=== PATIENT | female | born 1975 | race Caucasian/White ===

== ENCOUNTER 2016-10-17 15:37 | Emergency (ER) | payer OTHER ==
[~2016-10-17] VITALS: Ht 152.4 cm; Wt 72.6 kg
[~2016-10-17 15:37] MED LIST: ALBUD HHN; BACO TOP; CLINDAMYCI900 MG/50 IV; CLINDAMYCIN HC300 MG PO; DDAVP; DDAVP0.1 MG PO; DDAVP0.2 MG PO; DESMOPRESSIN A0.1 MG PO; DIL100 PO; DIL100L PO; DILANTIN100 MG PO; DOC-Q-LACE PO; HIBICLENS118 ML TOP; KEP500 PO; KEPPRA500 MG PO; LAC PO; LACTULOSE10 GM/152 PO; LEVAQUIN750 MG PO; LEVAQUIN750 MG/150 IV; LEVOTHYROXIN0.075 M2 PO; LOVASTATIN20 MG PO; MAC100 PO; MEV20 PO; SENNA PO; SYN25 PO; THE50; VAN1I IV; ZOS3PM IV; [UNRECOGNIZED DRUG - CODE] IV
[2016-10-17 17:08] LABS: BASOPHIL % 0.9 % (0-2); PLATELET COUNT 243 x10^3mcL (130-400)
[2016-10-17 17:14] LABS: CALCIUM 9.3 mg/dL (8.5-10.1); CARBON DIOXIDE 31.6 mmol/L (21-32); CHLORIDE SERUM 108 mmol/L (98-107); CREATININE SERUM 0.6 mg/dL (0.6-1.0); GFR1 > 60 mL/min; GLUCOSE SERUM 98 mg/dL (74-106); POTASSIUM SERUM 3.7 mmol/L (3.5-5.1); SODIUM SERUM 146 mmol/L (136-145)
[2016-10-17 17:15] LABS: RED CELL DISTRIBUTION WIDTH 17.8 % (11.5-14.5)
[2016-10-17 17:18] LABS: ALBUMIN 3.8 g/dL (3.4-5.0); ALKALINE PHOSPHATASE 168 U/L (46-116); ALT/SGPT 33 U/L (14-59); AST/SGOT 20 U/L (15-37); BILIRUBIN TOTAL 0.22 mg/dL (0.20-1.00); LIPASE 198 IU/L (73-393); TOTAL PROTEIN, SERUM 8.1 g/dL (6.4-8.2)
[2016-10-17 23:07] VITALS: BP 106/69
== END 2016-10-17 23:07 | disposition home or self-care (01) ==
LOC: ED 15:37
PROVIDERS: Emergency Medicine
DX: G40.909 Epilepsy, unspecified, not intractable, without status epilepticus (principal); E11.9 Type 2 diabetes mellitus without complications; I10 Essential (primary) hypertension; Z88.0 Allergy status to penicillin; Z86.14 Personal history of Methicillin resistant Staphylococcus aureus infection

== ENCOUNTER 2016-11-19 15:22 | Inpatient (IN) | payer OTHER ==
[~2016-11-19] VITALS: Ht 149.9 cm; Wt 75.3 kg
[2016-11-19 17:04] LABS: CALCIUM 8.8 mg/dL (8.5-10.1); CARBON DIOXIDE 32.9 mmol/L (21-32); CHLORIDE SERUM 92 mmol/L (98-107); CREATININE SERUM 0.5 mg/dL (0.6-1.0); GFR1 > 60 mL/min; GLUCOSE SERUM 99 mg/dL (74-106); POTASSIUM SERUM 3.5 mmol/L (3.5-5.1); SODIUM SERUM 133 mmol/L (136-145)
[2016-11-19 17:09] LABS: BASOPHIL % 0.4 % (0-2); PLATELET COUNT 220 x10^3mcL (130-400)
[2016-11-19 17:10] LABS: RED CELL DISTRIBUTION WIDTH 17.7 % (11.5-14.5)
[2016-11-19 17:12] LABS: ALBUMIN 3.4 g/dL (3.4-5.0); ALKALINE PHOSPHATASE 173 U/L (46-116); ALT/SGPT 20 U/L (14-59); AST/SGOT 12 U/L (15-37); BILIRUBIN TOTAL 0.2 mg/dL (0.20-1.00); TOTAL PROTEIN, SERUM 7.4 g/dL (6.4-8.2)
[2016-11-19 17:28] LABS: CK-MB < 0.5 ng/mL (0-3.6); CREATINE KINASE 54 U/L (26-192)
[2016-11-19 20:56] VITALS: BP 119/76
[2016-11-19 21:00] VITALS: BP 119/76
[2016-11-19 22:02] LABS: CHOLESTEROL/HDL RATIO 1.8
[2016-11-19 22:10] LABS: T3 TOTAL 0.95 ng/mL
[2016-11-19 22:11] LABS: FREE T4 0.78 ng/dL (0.76-1.46); FREE THYROXINE INDEX 2.2 ug/dL (1.4-4.5); T4(THYROXINE) 7.2 ug/dL (4.7-13.3)
[2016-11-19 23:05] VITALS: BP 119/76
[2016-11-20 06:59] VITALS: BP 124/79
[2016-11-20 09:51] VITALS: BP 127/76
[2016-11-20 11:08] LABS: BASOPHIL % 0.1 % (0-2); PLATELET COUNT 261 x10^3mcL (130-400)
[2016-11-20 11:14] LABS: RED CELL DISTRIBUTION WIDTH 17.5 % (11.5-14.5)
[2016-11-20 11:18] LABS: CALCIUM 9.7 mg/dL (8.5-10.1); CARBON DIOXIDE 28.5 mmol/L (21-32); CHLORIDE SERUM 119 mmol/L (98-107); CREATININE SERUM 0.4 mg/dL (0.6-1.0); GFR1 > 60 mL/min; GLUCOSE SERUM 116 mg/dL (74-106); MAGNESIUM 2.3 mg/dL (1.8-2.4); SODIUM SERUM 156 mmol/L (136-145)
[2016-11-20 11:40] VITALS: Ht 149.9 cm; Wt 75.3 kg
[2016-11-20 13:18] VITALS: BP 126/70
[2016-11-20 16:11] VITALS: BP 120/74
[2016-11-20 22:26] VITALS: BP 110/70
[2016-11-21 06:03] LABS: BASOPHIL % 0.2 % (0-2); PLATELET COUNT 227 x10^3mcL (130-400)
[2016-11-21 06:22] VITALS: BP 120/84
[2016-11-21 06:37] LABS: CALCIUM 8.9 mg/dL (8.5-10.1); CARBON DIOXIDE 26.9 mmol/L (21-32); CHLORIDE SERUM 112 mmol/L (98-107); CREATININE SERUM 0.3 mg/dL (0.6-1.0); GFR1 > 60 mL/min; GLUCOSE SERUM 113 mg/dL (74-106); MAGNESIUM 2.1 mg/dL (1.8-2.4); PHOSPHOROUS 3.1 mg/dL (2.5-4.9); POTASSIUM SERUM 4.4 mmol/L (3.5-5.1); SODIUM SERUM 148 mmol/L (136-145)
[2016-11-21 06:49] LABS: RED CELL DISTRIBUTION WIDTH 18.6 % (11.5-14.5)
[2016-11-21 10:00] VITALS: BP 128/79
[2016-11-21 11:24] LABS: microscopic required? YES; urine erythrocyte TRACE (NEGATIVE)
[2016-11-21 13:33] LABS: AMPHETAMINE QUAL UR NONE DETECTED (NEG <=1000)
[2016-11-21 14:45] VITALS: BP 115/79
[2016-11-21 17:29] VITALS: BP 112/80
[2016-11-21 21:59] VITALS: BP 108/62
[2016-11-22 06:04] VITALS: BP 110/70
[2016-11-22 06:23] LABS: BASOPHIL % 0.6 % (0-2); PLATELET COUNT 218 x10^3mcL (130-400)
[2016-11-22 06:35] LABS: CARBON DIOXIDE 28.9 mmol/L (21-32); CHLORIDE SERUM 110 mmol/L (98-107); CREATININE SERUM 0.5 mg/dL (0.6-1.0); GFR1 > 60 mL/min; GLUCOSE SERUM 82 mg/dL (74-106); PHOSPHOROUS 2.8 mg/dL (2.5-4.9); POTASSIUM SERUM 3.7 mmol/L (3.5-5.1); SODIUM SERUM 145 mmol/L (136-145)
[2016-11-22 09:29] VITALS: BP 126/78
[2016-11-22] MEDS ORDERED: LEVAQUIN500 M1 PO (09:57)
[2016-11-22] MEDS ORDERED: MEDDP PO (09:57)
[2016-11-22] MEDS ORDERED: LAC PO (09:57)
[2016-11-22 13:29] VITALS: BP 126/78
[2016-11-22 13:50] VITALS: BP 119/78
== END 2016-11-22 15:50 | disposition home health service (06) | DRG 189 ==
LOC: ED 15:22 → DU 18:50
PROVIDERS: Emergency Medicine; ADMIT Family Medicine
DX: J96.20 Acute and chronic respiratory failure, unspecified whether with hypoxia or hypercapnia (principal); J45.901 Unspecified asthma with (acute) exacerbation; E23.2 Diabetes insipidus; E87.1 Hypo-osmolality and hyponatremia; I69.359 Hemiplegia and hemiparesis following cerebral infarction affecting unspecified side; L89.152 Pressure ulcer of sacral region, stage 2; B95.62 Methicillin resistant Staphylococcus aureus infection as the cause of diseases classified elsewhere; I10 Essential (primary) hypertension; E03.9 Hypothyroidism, unspecified; E34.3 Short stature due to endocrine disorder; E78.5 Hyperlipidemia, unspecified; G40.909 Epilepsy, unspecified, not intractable, without status epilepticus; E66.9 Obesity, unspecified; Z68.33 Body mass index [BMI] 33.0-33.9, adult; Z99.3 Dependence on wheelchair; Z79.51 Long term (current) use of inhaled steroids
CPT/HCPCS: 36600; 83880; 84439; 92610; J1644; J1956; J2060; J2920; J2930; J7030; J7512; J7613; J7620; J7626; J7644; Q0092

== ENCOUNTER 2016-12-15 19:43 | Emergency (ER) | payer OTHER ==
[~2016-12-15] VITALS: Ht 142.2 cm; Wt 68.0 kg
[~2016-12-15 19:43] MED LIST changes: +LEVAQUIN500 M1 PO; +MEDDP PO
[2016-12-15 20:31] LABS: BASOPHIL % 0.7 % (0-2); PLATELET COUNT 296 x10^3mcL (130-400)
[2016-12-15 20:32] LABS: RED CELL DISTRIBUTION WIDTH 17.2 % (11.5-14.5)
[2016-12-15 20:39] LABS: CALCIUM 8.9 mg/dL (8.5-10.1); CARBON DIOXIDE 29.8 mmol/L (21-32); CHLORIDE SERUM 104 mmol/L (98-107); CREATININE SERUM 0.6 mg/dL (0.6-1.0); GFR1 > 60 mL/min; GLUCOSE SERUM 97 mg/dL (74-106); POTASSIUM SERUM 3.8 mmol/L (3.5-5.1); SODIUM SERUM 138 mmol/L (136-145)
[2016-12-15 20:43] LABS: ALKALINE PHOSPHATASE 167 U/L (46-116); ALT/SGPT 24 U/L (14-59); AST/SGOT 15 U/L (15-37); BILIRUBIN TOTAL 0.1 mg/dL (0.20-1.00); LIPASE 170 IU/L (73-393); TOTAL PROTEIN, SERUM 7.1 g/dL (6.4-8.2)
[2016-12-15 20:47] LABS: ALBUMIN 3.3 g/dL (3.4-5.0)
[2016-12-16 00:55] VITALS: BP 118/71
== END 2016-12-16 00:55 | disposition home or self-care (01) ==
LOC: ED 19:43
PROVIDERS: Emergency Medicine
DX: R10.10 Upper abdominal pain, unspecified (principal); J45.909 Unspecified asthma, uncomplicated

== ENCOUNTER 2017-01-04 13:01 | Emergency (ER) | payer OTHER ==
[2017-01-04 21:40] VITALS: BP 128/80
== END 2017-01-04 22:18 | disposition home or self-care (01) ==
LOC: ED 13:01
DX: J18.9 Pneumonia, unspecified organism (principal); J45.901 Unspecified asthma with (acute) exacerbation; R06.89 Other abnormalities of breathing; E34.3 Short stature due to endocrine disorder; E03.9 Hypothyroidism, unspecified; E78.00 Pure hypercholesterolemia, unspecified; G40.909 Epilepsy, unspecified, not intractable, without status epilepticus; E66.01 Morbid (severe) obesity due to excess calories
CPT/HCPCS: 36600; Q0092

== ENCOUNTER 2017-02-01 01:22 | Emergency (ER) | payer OTHER ==
[~2017-02-01] VITALS: Ht 142.2 cm; Wt 72.6 kg
[2017-02-01 05:36] VITALS: BP 113/70
== END 2017-02-01 05:36 | disposition home or self-care (01) ==
LOC: ED 01:22
DX: K59.00 Constipation, unspecified (principal); J45.909 Unspecified asthma, uncomplicated; E11.9 Type 2 diabetes mellitus without complications; R62.50 Unspecified lack of expected normal physiological development in childhood; E66.9 Obesity, unspecified; E34.3 Short stature due to endocrine disorder; K72.90 Hepatic failure, unspecified without coma; Z88.0 Allergy status to penicillin
CPT/HCPCS: J7613; Q0092

== ENCOUNTER 2017-06-16 23:49 | Emergency (ER) | payer OTHER ==
[2017-06-17 00:49] LABS: ALBUMIN 3.5 g/dL (3.4-5.0); ALKALINE PHOSPHATASE 144 U/L (46-116); ALT/SGPT 25 U/L (14-59); AST/SGOT 12 U/L (15-37); BILIRUBIN TOTAL 0.2 mg/dL (0.20-1.00); CARBON DIOXIDE 31.4 mmol/L (21-32); CHLORIDE SERUM 107 mmol/L (98-107); CREATININE SERUM 0.5 mg/dL (0.6-1.0); GFR1 > 60 mL/min; GLUCOSE SERUM 83 mg/dL (74-106); LIPASE 329 IU/L (73-393); SODIUM SERUM 145 mmol/L (136-145); TOTAL PROTEIN, SERUM 7.5 g/dL (6.4-8.2)
[2017-06-17 01:05] LABS: CALCIUM 9.2 mg/dL (8.5-10.1)
[2017-06-17 07:25] VITALS: BP 105/73
== END 2017-06-17 12:18 | disposition home or self-care (01) ==
LOC: ED 23:49
PROVIDERS: Emergency Medicine
DX: R10.9 Unspecified abdominal pain (principal); J45.909 Unspecified asthma, uncomplicated; E11.9 Type 2 diabetes mellitus without complications; E78.00 Pure hypercholesterolemia, unspecified; Z86.73 Personal history of transient ischemic attack (TIA), and cerebral infarction without residual deficits; Z88.0 Allergy status to penicillin
CPT/HCPCS: 36415; Q0092

== ENCOUNTER 2017-08-07 02:36 | Emergency (ER) | payer OTHER ==
[~2017-08-07] VITALS: Ht 149.9 cm; Wt 68.0 kg
[2017-08-07 02:40] VITALS: Ht 149.9 cm; Wt 68.0 kg
[2017-08-07 03:52] LABS: PLATELET COUNT 238 x10^3mcL (130-400)
[2017-08-07 04:56] LABS: SODIUM SERUM 142 mmol/L (136-145)
[2017-08-07 04:57] LABS: CARBON DIOXIDE 30.9 mmol/L (21-32); CHLORIDE SERUM 106 mmol/L (98-107); CREATININE SERUM 0.5 mg/dL (0.6-1.0); GFR1 > 60 mL/min; GLUCOSE SERUM 81 mg/dL (74-106); POTASSIUM SERUM 3.9 mmol/L (3.5-5.1)
[2017-08-07 04:58] LABS: ALBUMIN 3.4 g/dL (3.4-5.0); ALKALINE PHOSPHATASE 164 U/L (46-116); ALT/SGPT 26 U/L (14-59); AST/SGOT 15 U/L (15-37); BILIRUBIN TOTAL 0.12 mg/dL (0.20-1.00); FREE T4 0.63 ng/dL (0.76-1.46); TOTAL PROTEIN, SERUM 7.6 g/dL (6.4-8.2)
[2017-08-07 05:10] LABS: UA SPECIFIC GRAVITY <=1.005 (1.005-1.035); microscopic required? YES; urine erythrocyte TRACE (NEGATIVE)
[2017-08-07 11:12] VITALS: BP 109/70
== END 2017-08-07 11:13 | disposition home or self-care (01) ==
LOC: ED 02:36
PROVIDERS: Emergency Medicine
DX: G40.909 Epilepsy, unspecified, not intractable, without status epilepticus (principal); N39.0 Urinary tract infection, site not specified; J45.909 Unspecified asthma, uncomplicated; E11.9 Type 2 diabetes mellitus without complications; E78.00 Pure hypercholesterolemia, unspecified; E66.9 Obesity, unspecified; Z88.0 Allergy status to penicillin
CPT/HCPCS: 36415; 82962; 84439; Q0092

== ENCOUNTER 2018-01-24 12:45 | Emergency (ER) | payer OTHER ==
[~2018-01-24] VITALS: Ht 142.2 cm; Wt 68.0 kg
[2018-01-24 12:57] VITALS: Ht 142.2 cm; Wt 68.0 kg
[2018-01-24 14:50] LABS: PLATELET COUNT 253 x10^3mcL (130-400); RED CELL DISTRIBUTION WIDTH 17.3 % (11.5-14.5)
[2018-01-24 14:58] LABS: CARBON DIOXIDE 30.6 mmol/L (21-32); CHLORIDE SERUM 109 mmol/L (98-107); CREATININE SERUM 0.5 mg/dL (0.6-1.0); GFR1 > 60 mL/min; GLUCOSE SERUM 82 mg/dL (74-106); POTASSIUM SERUM 3.9 mmol/L (3.5-5.1); SODIUM SERUM 147 mmol/L (136-145)
[2018-01-24 15:03] LABS: ALKALINE PHOSPHATASE 167 U/L (46-116); ALT/SGPT 19 U/L (14-59); AST/SGOT 14 U/L (15-37); BILIRUBIN TOTAL 0.3 mg/dL (0.20-1.00); CHOLESTEROL 200 mg/dL (<200); HDL CHOLESTEROL 113 mg/dL (40-60); TOTAL PROTEIN, SERUM 7.9 g/dL (6.4-8.2)
[2018-01-24 17:20] LABS: microscopic required? YES; urine erythrocyte TRACE (NEGATIVE)
[2018-01-25 03:12] VITALS: BP 142/96
== END 2018-01-25 03:32 | disposition home or self-care (01) ==
LOC: ED 12:45
PROVIDERS: Emergency Medicine
DX: R53.1 Weakness (principal); E86.0 Dehydration; J45.909 Unspecified asthma, uncomplicated; E11.9 Type 2 diabetes mellitus without complications; Z88.0 Allergy status to penicillin
CPT/HCPCS: J1165; J1953; J3490; J7030; J7050; Q0092

== ENCOUNTER 2018-01-25 08:17 | Inpatient (IN) | payer OTHER ==
[~2018-01-25] VITALS: Ht 142.2 cm; Wt 73.5 kg
[2018-01-25 08:21] VITALS: Ht 142.2 cm; Wt 73.5 kg
[2018-01-25 09:13] LABS: BASOPHIL % 0.8 % (0-2); PLATELET COUNT 257 x10^3mcL (130-400); RED CELL DISTRIBUTION WIDTH 17.2 % (11.5-14.5)
[2018-01-25 09:26] LABS: CALCIUM 9.1 mg/dL (8.5-10.1); CARBON DIOXIDE 29.7 mmol/L (21-32); CHLORIDE SERUM 108 mmol/L (98-107); CREATININE SERUM 0.7 mg/dL (0.6-1.0); GFR1 > 60 mL/min; GLUCOSE SERUM 198 mg/dL (74-106); POTASSIUM SERUM 3.6 mmol/L (3.5-5.1); SODIUM SERUM 146 mmol/L (136-145)
[2018-01-25 09:27] LABS: UA SPECIFIC GRAVITY <=1.005 (1.005-1.035); microscopic required? YES; urine erythrocyte TRACE (NEGATIVE)
[2018-01-25 09:30] LABS: ALBUMIN 3.7 g/dL (3.4-5.0); ALKALINE PHOSPHATASE 163 U/L (46-116); ALT/SGPT 24 U/L (14-59); AST/SGOT 15 U/L (15-37); BILIRUBIN TOTAL 0.25 mg/dL (0.20-1.00); CHOLESTEROL 180 mg/dL (<200); PHOSPHOROUS 2.5 mg/dL (2.5-4.9); TOTAL PROTEIN, SERUM 7.9 g/dL (6.4-8.2)
[2018-01-25 09:31] LABS: HDL CHOLESTEROL 105 mg/dL (40-60)
[2018-01-25 09:39] LABS: FREE T4 0.71 ng/dL (0.76-1.46); FREE THYROXINE INDEX 1.7 ug/dL (1.4-4.5); T3 TOTAL 0.89 ng/mL
[2018-01-25 12:04] LABS: CHOLESTEROL/HDL RATIO 1.8
[2018-01-25 12:23] LABS: AMPHETAMINE QUAL UR NONE DETECTED (See below)
[2018-01-25 13:03] VITALS: BP 113/77
[2018-01-25 18:48] VITALS: BP 126/78
[2018-01-25 20:29] VITALS: BP 121/77
[2018-01-25 21:30] VITALS: BP 121/77
[2018-01-26 05:50] VITALS: BP 112/72
[2018-01-26 08:36] LABS: BASOPHIL % 0.9 % (0-2); PLATELET COUNT 222 x10^3mcL (130-400)
[2018-01-26 08:39] LABS: RED CELL DISTRIBUTION WIDTH 16.6 % (11.5-14.5)
[2018-01-26 08:46] LABS: CALCIUM 7.9 mg/dL (8.5-10.1); CARBON DIOXIDE 29.6 mmol/L (21-32); CHLORIDE SERUM 113 mmol/L (98-107); CREATININE SERUM 0.5 mg/dL (0.6-1.0); GFR1 > 60 mL/min; GLUCOSE SERUM 76 mg/dL (74-106); MAGNESIUM 1.8 mg/dL (1.8-2.4); PHOSPHOROUS 2.7 mg/dL (2.5-4.9); POTASSIUM SERUM 3.5 mmol/L (3.5-5.1); SODIUM SERUM 147 mmol/L (136-145)
[2018-01-26 09:30] VITALS: BP 122/70
[2018-01-26 17:20] VITALS: BP 128/68
[2018-01-26 21:24] VITALS: BP 127/72
[2018-01-27 05:15] VITALS: BP 146/79
[2018-01-27 06:18] LABS: BASOPHIL % 0.5 % (0-2); PLATELET COUNT 238 x10^3mcL (130-400)
[2018-01-27 06:45] LABS: CALCIUM 9.1 mg/dL (8.5-10.1); CARBON DIOXIDE 26.5 mmol/L (21-32); CHLORIDE SERUM 110 mmol/L (98-107); CREATININE SERUM 0.4 mg/dL (0.6-1.0); GFR1 > 60 mL/min; GLUCOSE SERUM 80 mg/dL (74-106); POTASSIUM SERUM 3.7 mmol/L (3.5-5.1); SODIUM SERUM 145 mmol/L (136-145)
[2018-01-27 06:49] LABS: RED CELL DISTRIBUTION WIDTH 16.7 % (11.5-14.5)
[2018-01-27 10:00] VITALS: BP 105/76
[2018-01-27 17:06] VITALS: BP 140/83
[2018-01-27 21:39] VITALS: BP 125/72
[2018-01-28 05:50] VITALS: BP 134/84
[2018-01-28 08:41] LABS: CALCIUM 9.1 mg/dL (8.5-10.1); CARBON DIOXIDE 27.8 mmol/L (21-32); CHLORIDE SERUM 114 mmol/L (98-107); CREATININE SERUM 0.5 mg/dL (0.6-1.0); GFR1 > 60 mL/min; GLUCOSE SERUM 88 mg/dL (74-106); POTASSIUM SERUM 3.6 mmol/L (3.5-5.1); SODIUM SERUM 151 mmol/L (136-145)
[2018-01-28 09:32] VITALS: BP 117/77
[2018-01-28 10:09] VITALS: BP 117/77
[2018-01-28 10:30] LABS: BASOPHIL % 0.4 % (0-2); PLATELET COUNT 231 x10^3mcL (130-400)
[2018-01-28 10:32] LABS: RED CELL DISTRIBUTION WIDTH 17.7 % (11.5-14.5)
[2018-01-28 18:40] VITALS: BP 131/90
[2018-01-28 21:03] VITALS: BP 122/87
[2018-01-29 05:19] VITALS: BP 121/78
[2018-01-29 07:13] LABS: BASOPHIL % 0.7 % (0-2); PLATELET COUNT 232 x10^3mcL (130-400)
[2018-01-29 08:07] LABS: CALCIUM 9.4 mg/dL (8.5-10.1); CARBON DIOXIDE 31.9 mmol/L (21-32); CHLORIDE SERUM 113 mmol/L (98-107); CREATININE SERUM 0.5 mg/dL (0.6-1.0); GFR1 > 60 mL/min; GLUCOSE SERUM 74 mg/dL (74-106); POTASSIUM SERUM 4.1 mmol/L (3.5-5.1); SODIUM SERUM 152 mmol/L (136-145)
[2018-01-29 08:24] VITALS: BP 134/85
[2018-01-29] MEDS ORDERED: KEFLEX500 M1 PO (11:49)
[2018-01-29] MEDS ORDERED: BD LACTINEX1.4 MG PO (11:49)
[2018-01-29 12:19] VITALS: BP 134/85
[2018-01-29 17:31] VITALS: BP 138/81
[2018-01-29 20:49] VITALS: BP 132/82
[2018-01-30 05:44] VITALS: BP 125/80
[2018-01-30 07:53] LABS: CALCIUM 8.9 mg/dL (8.5-10.1); CHLORIDE SERUM 107 mmol/L (98-107); CREATININE SERUM 0.4 mg/dL (0.6-1.0); GFR1 > 60 mL/min; GLUCOSE SERUM 65 mg/dL (74-106); POTASSIUM SERUM 4.1 mmol/L (3.5-5.1); SODIUM SERUM 142 mmol/L (136-145)
[2018-01-30 09:13] VITALS: BP 122/87
[2018-01-30 09:26] VITALS: BP 134/85
[2018-01-30 21:52] VITALS: BP 122/74
== END 2018-01-30 22:20 | disposition home health service (06) | DRG 640 ==
LOC: ED 08:17 → MU 10:30
PROVIDERS: Emergency Medicine; Family Medicine
DX: E86.0 Dehydration (principal); G93.41 Metabolic encephalopathy; E23.2 Diabetes insipidus; N39.0 Urinary tract infection, site not specified; G82.20 Paraplegia, unspecified; R13.10 Dysphagia, unspecified; K59.00 Constipation, unspecified; L89.320 Pressure ulcer of left buttock, unstageable; L89.310 Pressure ulcer of right buttock, unstageable; J45.909 Unspecified asthma, uncomplicated; G40.909 Epilepsy, unspecified, not intractable, without status epilepticus; E34.3 Short stature due to endocrine disorder; R62.50 Unspecified lack of expected normal physiological development in childhood; G47.33 Obstructive sleep apnea (adult) (pediatric); E03.9 Hypothyroidism, unspecified; Z68.35 Body mass index [BMI] 35.0-35.9, adult; Z99.3 Dependence on wheelchair; Z86.73 Personal history of transient ischemic attack (TIA), and cerebral infarction without residual deficits
CPT/HCPCS: 83880; 84439; 97535-GP; J0696; J1956; J7030; J7040; J7620; Q0092

== ENCOUNTER 2018-01-30 23:18 | Observation (INO) | payer OTHER ==
[~2018-01-30] VITALS: Ht 142.2 cm; Wt 74.0 kg
[~2018-01-30 23:18] MED LIST changes: +BD LACTINEX1.4 MG PO; +KEFLEX500 M1 PO
[2018-01-30 23:47] VITALS: Ht 142.2 cm; Wt 74.0 kg
[2018-01-31] VITALS (7 sets, daily range): BP systolic 115–132; BP diastolic 75–84
== END 2018-01-31 19:34 | disposition home or self-care (01) | DRG 689 ==
LOC: ED 23:18 → MU 23:48 → EDBEDREQ 23:48 → DU 23:48 → MU 01-31 00:55
DX: N39.0 Urinary tract infection, site not specified (principal); G92 Toxic encephalopathy; E23.2 Diabetes insipidus; G82.20 Paraplegia, unspecified; R13.10 Dysphagia, unspecified; J45.909 Unspecified asthma, uncomplicated; L89.329 Pressure ulcer of left buttock, unspecified stage; L89.319 Pressure ulcer of right buttock, unspecified stage; E03.9 Hypothyroidism, unspecified; G40.909 Epilepsy, unspecified, not intractable, without status epilepticus; K59.00 Constipation, unspecified; R62.50 Unspecified lack of expected normal physiological development in childhood
CPT/HCPCS: G0378

== ENCOUNTER 2018-02-01 11:56 | Inpatient (IN) | payer OTHER ==
[~2018-02-01] VITALS: Ht 142.2 cm; Wt 71.4 kg
[2018-02-01 12:16] VITALS: Ht 142.2 cm; Wt 71.4 kg
[2018-02-01 14:04] LABS: BASOPHIL % 0.7 % (0-2); PLATELET COUNT 218 x10^3mcL (130-400)
[2018-02-01 14:06] LABS: RED CELL DISTRIBUTION WIDTH 17.7 % (11.5-14.5)
[2018-02-01 15:10] LABS: CARBON DIOXIDE 30.6 mmol/L (21-32); CHLORIDE SERUM 105 mmol/L (98-107); CREATININE SERUM 0.7 mg/dL (0.6-1.0); GFR1 > 60 mL/min; GLUCOSE SERUM 101 mg/dL (74-106); POTASSIUM SERUM 3.3 mmol/L (3.5-5.1); SODIUM SERUM 147 mmol/L (136-145)
[2018-02-01 15:15] LABS: ALBUMIN 3.9 g/dL (3.4-5.0); ALKALINE PHOSPHATASE 172 U/L (46-116); ALT/SGPT 49 U/L (14-59); AST/SGOT 41 U/L (15-37); BILIRUBIN TOTAL 0.28 mg/dL (0.20-1.00)
[2018-02-01 15:16] LABS: TOTAL PROTEIN, SERUM 8.5 g/dL (6.4-8.2)
[2018-02-01 16:29] VITALS: BP 119/82
[2018-02-01 18:58] VITALS: BP 125/86
[2018-02-01 20:38] VITALS: BP 126/85
[2018-02-02 05:15] VITALS: BP 143/87
[2018-02-02 07:49] LABS: BASOPHIL % 0.5 % (0-2); PLATELET COUNT 197 x10^3mcL (130-400)
[2018-02-02 07:51] LABS: RED CELL DISTRIBUTION WIDTH 16.9 % (11.5-14.5)
[2018-02-02 08:02] LABS: CALCIUM 9.2 mg/dL (8.5-10.1); CHLORIDE SERUM 108 mmol/L (98-107); CREATININE SERUM 0.4 mg/dL (0.6-1.0); GFR1 > 60 mL/min; GLUCOSE SERUM 78 mg/dL (74-106); POTASSIUM SERUM 3.6 mmol/L (3.5-5.1); SODIUM SERUM 146 mmol/L (136-145); T4(THYROXINE) 5.2 ug/dL (4.7-13.3)
[2018-02-02 09:00] VITALS: BP 139/75
[2018-02-02 09:38] LABS: ERYTHROCYTE SED RATE 31 mm/hr (0-20)
[2018-02-02 13:34] VITALS: BP 135/84
[2018-02-02 17:07] VITALS: BP 126/89
[2018-02-02 21:21] VITALS: BP 140/95
[2018-02-03 04:30] VITALS: BP 144/96
[2018-02-03 05:17] LABS: RAPID PLASMA REAGIN Non Reactive (Non Reactive)
[2018-02-03 07:24] LABS: BASOPHIL % 0.6 % (0-2); PLATELET COUNT 217 x10^3mcL (130-400)
[2018-02-03 07:25] LABS: RED CELL DISTRIBUTION WIDTH 17.5 % (11.5-14.5)
[2018-02-03 08:50] VITALS: BP 139/84
[2018-02-03 09:13] LABS: RHEUMATOID ARTHRITIS FACTOR 10.9 IU/mL (0.0-13.9)
[2018-02-03 13:34] VITALS: BP 124/79
[2018-02-03 18:42] VITALS: BP 115/85
== END 2018-02-03 20:00 | disposition home or self-care (01) | DRG 689 ==
LOC: ED 11:56 → DU 15:28
PROVIDERS: Emergency Medicine; Internal Medicine
DX: N39.0 Urinary tract infection, site not specified (principal); G93.41 Metabolic encephalopathy; E23.2 Diabetes insipidus; I69.359 Hemiplegia and hemiparesis following cerebral infarction affecting unspecified side; E34.3 Short stature due to endocrine disorder; G40.909 Epilepsy, unspecified, not intractable, without status epilepticus; E03.9 Hypothyroidism, unspecified; J45.909 Unspecified asthma, uncomplicated; E66.9 Obesity, unspecified; Z68.30 Body mass index [BMI] 30.0-30.9, adult; Z99.3 Dependence on wheelchair
CPT/HCPCS: 86431; J1956; J7620; Q0092

== ENCOUNTER 2018-03-17 02:50 | Emergency (ER) | payer OTHER ==
[~2018-03-17] VITALS: Ht 144.8 cm; Wt 68.0 kg
[2018-03-17 03:10] VITALS: Ht 144.8 cm; Wt 68.0 kg
[2018-03-17 15:11] VITALS: BP 133/77
== END 2018-03-17 15:11 | disposition home or self-care (01) ==
LOC: ED 02:50
DX: R06.02 Shortness of breath (principal); R09.02 Hypoxemia; J45.909 Unspecified asthma, uncomplicated; E11.9 Type 2 diabetes mellitus without complications; E78.00 Pure hypercholesterolemia, unspecified; E66.9 Obesity, unspecified; G82.20 Paraplegia, unspecified; Z48.811 Encounter for surgical aftercare following surgery on the nervous system; Z88.0 Allergy status to penicillin
CPT/HCPCS: 36600; Q0092

== ENCOUNTER 2018-03-18 05:35 | Observation (INO) | payer OTHER ==
[~2018-03-18] VITALS: Ht 172.7 cm; Wt 80.5 kg
[2018-03-18 07:07] LABS: CARBON DIOXIDE 27.2 mmol/L (21-32); CHLORIDE SERUM 112 mmol/L (98-107); CREATININE SERUM 0.5 mg/dL (0.6-1.0); GFR1 > 60 mL/min; GLUCOSE SERUM 86 mg/dL (74-106); POTASSIUM SERUM 3.4 mmol/L (3.5-5.1); SODIUM SERUM 150 mmol/L (136-145)
[2018-03-18 07:09] LABS: BASOPHIL % 0.9 % (0-2); PLATELET COUNT 230 x10^3mcL (130-400)
[2018-03-18 07:11] LABS: RED CELL DISTRIBUTION WIDTH 16.7 % (11.5-14.5)
[2018-03-18 07:12] LABS: ALBUMIN 3.5 g/dL (3.4-5.0); ALKALINE PHOSPHATASE 145 U/L (46-116); ALT/SGPT 25 U/L (14-59); AST/SGOT 18 U/L (15-37); TOTAL PROTEIN, SERUM 7.7 g/dL (6.4-8.2)
[2018-03-18 08:22] LABS: microscopic required? NO
[2018-03-18 09:57] LABS: UA SPECIFIC GRAVITY 1.025 (1.005-1.035); urine erythrocyte NEGATIVE (NEGATIVE)
[2018-03-18 11:27] VITALS: BP 116/68
[2018-03-18 14:17] VITALS: BP 108/70
[2018-03-18 16:00] VITALS: BP 123/72
[2018-03-18 17:05] VITALS: BP 123/72
[2018-03-18 21:21] VITALS: BP 130/75
[2018-03-19 05:24] VITALS: BP 139/75
[2018-03-19 09:37] VITALS: BP 131/82
[2018-03-19 10:49] VITALS: BP 131/82
[2018-03-19 12:43] VITALS: BP 120/67
[2018-03-19 15:00] VITALS: BP 120/67
[2018-03-19 16:06] VITALS: BP 120/67
== END 2018-03-19 16:51 | disposition home or self-care (01) | DRG 205 ==
LOC: ED 05:35 → DU 09:50
PROVIDERS: Emergency Medicine
DX: E66.2 Morbid (severe) obesity with alveolar hypoventilation (principal); J96.21 Acute and chronic respiratory failure with hypoxia; G82.20 Paraplegia, unspecified; E23.2 Diabetes insipidus; K72.90 Hepatic failure, unspecified without coma; I69.369 Other paralytic syndrome following cerebral infarction affecting unspecified side; G40.909 Epilepsy, unspecified, not intractable, without status epilepticus; F79 Unspecified intellectual disabilities; Z71.3 Dietary counseling and surveillance
CPT/HCPCS: 36600; G0378; J7030; J7620; Q0092

== ENCOUNTER 2018-03-26 08:24 | Emergency (ER) | payer OTHER ==
[~2018-03-26] VITALS: Ht 142.2 cm; Wt 68.0 kg
[2018-03-26 08:29] VITALS: Ht 142.2 cm; Wt 68.0 kg
[2018-03-26 08:57] LABS: CALCIUM 9.2 mg/dL (8.5-10.1); CHLORIDE SERUM 109 mmol/L (98-107); CREATININE SERUM 0.6 mg/dL (0.6-1.0); GFR1 > 60 mL/min; GLUCOSE SERUM 83 mg/dL (74-106); POTASSIUM SERUM 3.7 mmol/L (3.5-5.1); SODIUM SERUM 144 mmol/L (136-145)
[2018-03-26 09:03] LABS: ALBUMIN 3.5 g/dL (3.4-5.0); ALKALINE PHOSPHATASE 146 U/L (46-116); ALT/SGPT 31 U/L (14-59); AST/SGOT 16 U/L (15-37); BILIRUBIN TOTAL 0.18 mg/dL (0.20-1.00); CHOLESTEROL 167 mg/dL (<200); CHOLESTEROL/HDL RATIO 1.7; HDL CHOLESTEROL 99 mg/dL (40-60); LIPASE 119 IU/L (73-393); TOTAL PROTEIN, SERUM 7.7 g/dL (6.4-8.2); TRIGLYCERIDES 85 mg/dL (<150)
[2018-03-26 09:04] LABS: BASOPHIL % 0.9 % (0-2); PLATELET COUNT 296 x10^3mcL (130-400)
[2018-03-26 09:14] LABS: FREE T4 0.93 ng/dL (0.76-1.46); FREE THYROXINE INDEX 2.2 ug/dL (1.4-4.5); T4(THYROXINE) 7.2 ug/dL (4.7-13.3)
[2018-03-26 09:43] LABS: T3 TOTAL 0.91 ng/mL
[2018-03-26 09:51] LABS: UA SPECIFIC GRAVITY <=1.005 (1.005-1.035); microscopic required? YES; urine erythrocyte TRACE (NEGATIVE)
[2018-03-26 13:06] VITALS: BP 112/65
== END 2018-03-26 13:06 | disposition home or self-care (01) ==
LOC: ED 08:24
PROVIDERS: Specialist
DX: J45.909 Unspecified asthma, uncomplicated (principal); N39.0 Urinary tract infection, site not specified; E11.9 Type 2 diabetes mellitus without complications; E66.9 Obesity, unspecified; Z86.73 Personal history of transient ischemic attack (TIA), and cerebral infarction without residual deficits; Z88.0 Allergy status to penicillin
CPT/HCPCS: 36600; 83880; 84439; J1956; J7030; J7620; Q0092

== ENCOUNTER 2018-03-29 23:16 | Emergency (ER) | payer OTHER ==
[~2018-03-29] VITALS: Ht 142.2 cm; Wt 68.0 kg
[2018-03-29 23:32] VITALS: Ht 142.2 cm; Wt 68.0 kg
[2018-03-30 10:28] VITALS: BP 118/74
== END 2018-03-30 10:29 | disposition home or self-care (01) ==
LOC: ED 23:16
DX: J45.901 Unspecified asthma with (acute) exacerbation (principal); E11.9 Type 2 diabetes mellitus without complications; Z88.0 Allergy status to penicillin
CPT/HCPCS: 87804; J7613; J7644; Q0092

== ENCOUNTER 2018-03-30 20:22 | Emergency (ER) | payer OTHER ==
[~2018-03-30] VITALS: Ht 142.2 cm; Wt 68.0 kg
[2018-03-30 20:33] VITALS: Ht 142.2 cm; Wt 68.0 kg
[2018-03-31 01:00] VITALS: BP 124/72
== END 2018-03-31 01:00 | disposition home or self-care (01) ==
LOC: ED 20:22
DX: R09.02 Hypoxemia (principal); Z86.73 Personal history of transient ischemic attack (TIA), and cerebral infarction without residual deficits; E11.9 Type 2 diabetes mellitus without complications; E78.00 Pure hypercholesterolemia, unspecified; Z98.890 Other specified postprocedural states; Z88.0 Allergy status to penicillin
CPT/HCPCS: 36600

== ENCOUNTER 2018-04-20 17:20 | Emergency (ER) | payer OTHER ==
[~2018-04-20] VITALS: Ht 142.2 cm; Wt 68.0 kg
[2018-04-20 17:42] VITALS: Ht 142.2 cm; Wt 68.0 kg
[2018-04-20 18:41] LABS: CALCIUM 9.2 mg/dL (8.5-10.1); CARBON DIOXIDE 33.1 mmol/L (21-32); CHLORIDE SERUM 102 mmol/L (98-107); CREATININE SERUM 0.5 mg/dL (0.6-1.0); GFR1 > 60 mL/min; GLUCOSE SERUM 87 mg/dL (74-106); POTASSIUM SERUM 3.8 mmol/L (3.5-5.1); SODIUM SERUM 137 mmol/L (136-145)
[2018-04-20 18:45] LABS: ALKALINE PHOSPHATASE 131 U/L (46-116); ALT/SGPT 18 U/L (14-59); AST/SGOT 14 U/L (15-37); BILIRUBIN TOTAL 0.1 mg/dL (0.20-1.00); TOTAL PROTEIN, SERUM 7.4 g/dL (6.4-8.2)
[2018-04-20 18:46] LABS: ALBUMIN 3.2 g/dL (3.4-5.0)
[2018-04-20 21:19] VITALS: BP 107/62
== END 2018-04-20 21:19 | disposition home or self-care (01) ==
LOC: ED 17:20
PROVIDERS: Emergency Medicine
DX: G40.209 Localization-related (focal) (partial) symptomatic epilepsy and epileptic syndromes with complex partial seizures, not intractable, without status epilepticus (principal); J45.909 Unspecified asthma, uncomplicated; E11.9 Type 2 diabetes mellitus without complications; E78.00 Pure hypercholesterolemia, unspecified; E66.9 Obesity, unspecified; Z86.73 Personal history of transient ischemic attack (TIA), and cerebral infarction without residual deficits; Z88.0 Allergy status to penicillin; Z87.19 Personal history of other diseases of the digestive system

== ENCOUNTER 2018-05-06 15:11 | Emergency (ER) | payer OTHER ==
[~2018-05-06] VITALS: Ht 165.1 cm; Wt 90.7 kg
[2018-05-06 15:51] LABS: BASOPHIL % 0.4 % (0-2); PLATELET COUNT 286 x10^3mcL (130-400)
[2018-05-06 15:53] LABS: RED CELL DISTRIBUTION WIDTH 16.7 % (11.5-14.5)
[2018-05-06 15:54] LABS: CALCIUM 9.1 mg/dL (8.5-10.1); CARBON DIOXIDE 29.1 mmol/L (21-32); CHLORIDE SERUM 109 mmol/L (98-107); CREATININE SERUM 0.5 mg/dL (0.6-1.0); GFR1 > 60 mL/min; GLUCOSE SERUM 126 mg/dL (74-106); POTASSIUM SERUM 3.9 mmol/L (3.5-5.1); SODIUM SERUM 145 mmol/L (136-145)
[2018-05-06 16:01] LABS: ALBUMIN 3.5 g/dL (3.4-5.0); ALKALINE PHOSPHATASE 147 U/L (46-116); ALT/SGPT 20 U/L (14-59); AST/SGOT 12 U/L (15-37); BILIRUBIN TOTAL 0.1 mg/dL (0.20-1.00); TOTAL PROTEIN, SERUM 8.2 g/dL (6.4-8.2)
[2018-05-06 17:28] LABS: microscopic required? YES; urine erythrocyte 2+ (NEGATIVE)
[2018-05-06 21:17] VITALS: BP 115/78
== END 2018-05-06 21:17 | disposition home or self-care (01) ==
LOC: ED 15:11
PROVIDERS: Emergency Medicine
DX: G40.909 Epilepsy, unspecified, not intractable, without status epilepticus (principal); N39.0 Urinary tract infection, site not specified; K59.00 Constipation, unspecified; J45.909 Unspecified asthma, uncomplicated; E11.9 Type 2 diabetes mellitus without complications; E78.00 Pure hypercholesterolemia, unspecified; G82.20 Paraplegia, unspecified; E66.01 Morbid (severe) obesity due to excess calories; Z88.0 Allergy status to penicillin; Z86.73 Personal history of transient ischemic attack (TIA), and cerebral infarction without residual deficits
CPT/HCPCS: 36415; Q0092

== ENCOUNTER 2018-07-25 23:01 | Inpatient (IN) | payer OTHER ==
[~2018-07-25] VITALS: Ht 142.2 cm; Wt 70.9 kg
[2018-07-26 01:03] LABS: CALCIUM 9.8 mg/dL (8.5-10.1); CARBON DIOXIDE 34.1 mmol/L (21-32); CHLORIDE SERUM 100 mmol/L (98-107); CREATININE SERUM 0.5 mg/dL (0.6-1.0); GFR1 > 60 mL/min; GLUCOSE SERUM 84 mg/dL (74-106); POTASSIUM SERUM 3.6 mmol/L (3.5-5.1); SODIUM SERUM 138 mmol/L (136-145)
[2018-07-26 01:11] LABS: ALBUMIN 3.8 g/dL (3.4-5.0); ALKALINE PHOSPHATASE 184 U/L (46-116); ALT/SGPT 26 U/L (14-59); AST/SGOT 15 U/L (15-37); BILIRUBIN TOTAL 0.1 mg/dL (0.20-1.00)
[2018-07-26 01:16] LABS: PLATELET COUNT 252 x10^3mcL (130-400); TOTAL PROTEIN, SERUM 8.8 g/dL (6.4-8.2)
[2018-07-26 01:18] LABS: RED CELL DISTRIBUTION WIDTH 16.5 % (11.5-14.5)
[2018-07-26 01:45] LABS: MONOCYTE 5 % (0-7); SEGMENTED NEUTROPHILS 78 % (37-75)
[2018-07-26 01:46] LABS: BAND NEUTROPHIL 2 % (0-10)
[2018-07-26 01:48] LABS: rbc morphology (normal/abnorm) ABNORMAL (NORMAL)
[2018-07-26 01:49] LABS: PLATELET MORPHOLOGY PLATELETS NORMAL
[2018-07-26 05:27] LABS: MAGNESIUM 2.1 mg/dL (1.8-2.4); PHOSPHOROUS 3.1 mg/dL (2.5-4.9)
[2018-07-26 05:37] LABS: T3 TOTAL 0.91 ng/mL
[2018-07-26 05:39] LABS: FREE T4 0.87 ng/dL (0.76-1.46); FREE THYROXINE INDEX 2.6 ug/dL (1.4-4.5); T4(THYROXINE) 8.6 ug/dL (4.7-13.3)
[2018-07-26 13:43] VITALS: BP 148/75
[2018-07-26 14:06] LABS: microscopic required? NO
[2018-07-26 14:12] LABS: urine erythrocyte NEGATIVE (NEGATIVE)
[2018-07-26 14:20] LABS: AMPHETAMINE QUAL UR NONE DETECTED (See below)
[2018-07-26 17:45] VITALS: BP 130/85
[2018-07-26 21:41] VITALS: BP 142/100
[2018-07-27 05:33] VITALS: BP 135/90
[2018-07-27 07:02] LABS: CALCIUM 8.7 mg/dL (8.5-10.1); CARBON DIOXIDE 24.9 mmol/L (21-32); CHLORIDE SERUM 101 mmol/L (98-107); CREATININE SERUM 0.4 mg/dL (0.6-1.0); GFR1 > 60 mL/min; GLUCOSE SERUM 67 mg/dL (74-106); MAGNESIUM 1.6 mg/dL (1.8-2.4); PHOSPHOROUS 2.5 mg/dL (2.5-4.9); POTASSIUM SERUM 3.7 mmol/L (3.5-5.1); SODIUM SERUM 133 mmol/L (136-145)
[2018-07-27 08:14] LABS: BASOPHIL % 0.4 % (0-2); PLATELET COUNT 195 x10^3mcL (130-400)
[2018-07-27 08:15] LABS: RED CELL DISTRIBUTION WIDTH 16.5 % (11.5-14.5)
[2018-07-27 09:06] VITALS: BP 128/68
[2018-07-27 13:00] VITALS: BP 111/79
[2018-07-27 18:05] VITALS: BP 119/82
[2018-07-27 22:12] VITALS: BP 12/82
[2018-07-28 04:58] VITALS: BP 125/70
[2018-07-28 07:46] LABS: CALCIUM 9.1 mg/dL (8.5-10.1); CARBON DIOXIDE 26.6 mmol/L (21-32); CHLORIDE SERUM 113 mmol/L (98-107); CREATININE SERUM 0.5 mg/dL (0.6-1.0); GFR1 > 60 mL/min; GLUCOSE SERUM 77 mg/dL (74-106); MAGNESIUM 2.5 mg/dL (1.8-2.4); PHOSPHOROUS 2.7 mg/dL (2.5-4.9); POTASSIUM SERUM 3.6 mmol/L (3.5-5.1); SODIUM SERUM 152 mmol/L (136-145)
[2018-07-28 10:01] VITALS: BP 123/77
[2018-07-28 14:13] VITALS: BP 132/84
[2018-07-28 15:01] LABS: PLATELET COUNT 224 x10^3mcL (130-400)
[2018-07-28 15:10] LABS: RED CELL DISTRIBUTION WIDTH 16.7 % (11.5-14.5)
[2018-07-28 15:50] LABS: ATYPICAL LYMPH 2 %; BAND NEUTROPHIL 0 % (0-10); BASOPHIL 0 % (0-2); MONOCYTE 10 % (0-7); SEGMENTED NEUTROPHILS 64 % (37-75); rbc morphology (normal/abnorm) ABNORMAL (NORMAL)
[2018-07-28 15:51] LABS: PLATELET MORPHOLOGY PLATELETS NORMAL
[2018-07-28 17:46] VITALS: BP 126/77
[2018-07-28 21:20] VITALS: BP 120/70
[2018-07-29 05:57] VITALS: BP 104/56
[2018-07-29 06:15] LABS: BASOPHIL % 0.5 % (0-2); PLATELET COUNT 247 x10^3mcL (130-400)
[2018-07-29 06:29] LABS: CALCIUM 9.9 mg/dL (8.5-10.1); CARBON DIOXIDE 31.6 mmol/L (21-32); CHLORIDE SERUM 123 mmol/L (98-107); CREATININE SERUM 0.6 mg/dL (0.6-1.0); GFR1 > 60 mL/min; GLUCOSE SERUM 169 mg/dL (74-106); POTASSIUM SERUM 3.5 mmol/L (3.5-5.1)
[2018-07-29 06:34] VITALS: BP 129/76
[2018-07-29 06:34] LABS: RED CELL DISTRIBUTION WIDTH 18.1 % (11.5-14.5)
[2018-07-29 06:40] LABS: SODIUM SERUM 162 mmol/L (136-145)
[2018-07-29 10:03] VITALS: BP 134/87
[2018-07-29 13:29] VITALS: BP 129/81
[2018-07-29 18:55] VITALS: BP 144/99
[2018-07-29 20:38] VITALS: BP 145/91
[2018-07-30 04:53] VITALS: BP 133/56
[2018-07-30 06:07] LABS: BASOPHIL % 0.9 % (0-2); PLATELET COUNT 223 x10^3mcL (130-400)
[2018-07-30 06:26] LABS: CALCIUM 9.7 mg/dL (8.5-10.1); CARBON DIOXIDE 30.9 mmol/L (21-32); CHLORIDE SERUM 125 mmol/L (98-107); CREATININE SERUM 0.7 mg/dL (0.6-1.0); GFR1 > 60 mL/min; GLUCOSE SERUM 91 mg/dL (74-106); POTASSIUM SERUM 3.4 mmol/L (3.5-5.1)
[2018-07-30 06:42] LABS: RED CELL DISTRIBUTION WIDTH 18.2 % (11.5-14.5)
[2018-07-30 07:01] LABS: SODIUM SERUM 169 mmol/L (136-145)
[2018-07-30 10:10] VITALS: BP 135/78
[2018-07-30 13:39] VITALS: BP 125/77
[2018-07-30 16:05] VITALS: BP 119/71
[2018-07-30 19:40] VITALS: BP 135/76
[2018-07-30 23:05] VITALS: BP 127/83
[2018-07-31] VITALS (17 sets, daily range): BP systolic 93–134; BP diastolic 67–86
[2018-07-31 05:32] LABS: BASOPHIL % 0.6 % (0-2); PLATELET COUNT 213 x10^3mcL (130-400)
[2018-07-31 05:36] LABS: RED CELL DISTRIBUTION WIDTH 18.9 % (11.5-14.5)
[2018-07-31 05:49] LABS: CALCIUM 9.7 mg/dL (8.5-10.1); CARBON DIOXIDE 27.4 mmol/L (21-32); CHLORIDE SERUM 121 mmol/L (98-107); CREATININE SERUM 0.8 mg/dL (0.6-1.0); GFR1 > 60 mL/min; GLUCOSE SERUM 104 mg/dL (74-106); SODIUM SERUM 158 mmol/L (136-145)
[2018-07-31 05:53] LABS: POTASSIUM SERUM 2.6 mmol/L (3.5-5.1)
[2018-07-31 17:39] LABS: CALCIUM 8.8 mg/dL (8.5-10.1); CARBON DIOXIDE 29.2 mmol/L (21-32); CHLORIDE SERUM 120 mmol/L (98-107); CREATININE SERUM 0.7 mg/dL (0.6-1.0); GFR1 > 60 mL/min; GLUCOSE SERUM 138 mg/dL (74-106); SODIUM SERUM 157 mmol/L (136-145)
[2018-07-31 17:41] LABS: POTASSIUM SERUM 2.9 mmol/L (3.5-5.1)
[2018-08-01] VITALS (17 sets, daily range): BP systolic 102–126; BP diastolic 62–82
[2018-08-01 01:25] LABS: CALCIUM 8.4 mg/dL (8.5-10.1); CARBON DIOXIDE 26.3 mmol/L (21-32); CHLORIDE SERUM 119 mmol/L (98-107); CREATININE SERUM 0.6 mg/dL (0.6-1.0); GFR1 > 60 mL/min; GLUCOSE SERUM 116 mg/dL (74-106); SODIUM SERUM 154 mmol/L (136-145)
[2018-08-01 04:48] LABS: BASOPHIL % 0.8 % (0-2); PLATELET COUNT 147 x10^3mcL (130-400)
[2018-08-01 04:51] LABS: CALCIUM 8.3 mg/dL (8.5-10.1); CARBON DIOXIDE 27.1 mmol/L (21-32); CHLORIDE SERUM 118 mmol/L (98-107); CREATININE SERUM 0.6 mg/dL (0.6-1.0); GFR1 > 60 mL/min; GLUCOSE SERUM 98 mg/dL (74-106); POTASSIUM SERUM 3.3 mmol/L (3.5-5.1); SODIUM SERUM 151 mmol/L (136-145)
[2018-08-01 07:11] LABS: MAGNESIUM 1.2 mg/dL (1.8-2.4); PHOSPHOROUS 1.8 mg/dL (2.5-4.9)
[2018-08-01 12:52] LABS: CARBON DIOXIDE 26.8 mmol/L (21-32); CHLORIDE SERUM 115 mmol/L (98-107); CREATININE SERUM 0.5 mg/dL (0.6-1.0); GFR1 > 60 mL/min; GLUCOSE SERUM 123 mg/dL (74-106); POTASSIUM SERUM 3.7 mmol/L (3.5-5.1); SODIUM SERUM 150 mmol/L (136-145)
[2018-08-02] VITALS (19 sets, daily range): BP systolic 111–134; BP diastolic 67–88
[2018-08-02 05:35] LABS: BASOPHIL % 0.6 % (0-2); PLATELET COUNT 133 x10^3mcL (130-400)
[2018-08-02 05:36] LABS: RED CELL DISTRIBUTION WIDTH 17.4 % (11.5-14.5)
[2018-08-02 05:47] LABS: CALCIUM 8.1 mg/dL (8.5-10.1); CARBON DIOXIDE 26.9 mmol/L (21-32); CHLORIDE SERUM 107 mmol/L (98-107); CREATININE SERUM 0.5 mg/dL (0.6-1.0); GFR1 > 60 mL/min; GLUCOSE SERUM 100 mg/dL (74-106); SODIUM SERUM 142 mmol/L (136-145)
[2018-08-02 05:51] LABS: POTASSIUM SERUM 2.9 mmol/L (3.5-5.1)
[2018-08-02 14:15] LABS: CALCIUM 8.4 mg/dL (8.5-10.1); CARBON DIOXIDE 27.7 mmol/L (21-32); CHLORIDE SERUM 106 mmol/L (98-107); CREATININE SERUM 0.5 mg/dL (0.6-1.0); GFR1 > 60 mL/min; GLUCOSE SERUM 115 mg/dL (74-106); POTASSIUM SERUM 3.7 mmol/L (3.5-5.1); SODIUM SERUM 141 mmol/L (136-145)
[2018-08-03] VITALS (18 sets, daily range): BP systolic 113–134; BP diastolic 73–96
[2018-08-03 08:03] LABS: BASOPHIL % 0.6 % (0-2); PLATELET COUNT 148 x10^3mcL (130-400); RED CELL DISTRIBUTION WIDTH 17.4 % (11.5-14.5)
[2018-08-03 08:09] LABS: CALCIUM 8.4 mg/dL (8.5-10.1); CARBON DIOXIDE 25.7 mmol/L (21-32); CHLORIDE SERUM 102 mmol/L (98-107); CREATININE SERUM 0.4 mg/dL (0.6-1.0); GFR1 > 60 mL/min; GLUCOSE SERUM 102 mg/dL (74-106); POTASSIUM SERUM 3.1 mmol/L (3.5-5.1); SODIUM SERUM 137 mmol/L (136-145)
[2018-08-04] VITALS (19 sets, daily range): BP systolic 109–130; BP diastolic 64–82
[2018-08-04 05:43] LABS: BASOPHIL % 0.6 % (0-2); PLATELET COUNT 225 x10^3mcL (130-400)
[2018-08-04 05:56] LABS: CALCIUM 8.4 mg/dL (8.5-10.1); CHLORIDE SERUM 101 mmol/L (98-107); CREATININE SERUM 0.3 mg/dL (0.6-1.0); GFR1 > 60 mL/min; GLUCOSE SERUM 88 mg/dL (74-106); MAGNESIUM 1.7 mg/dL (1.8-2.4); PHOSPHOROUS 2.9 mg/dL (2.5-4.9); POTASSIUM SERUM 4.3 mmol/L (3.5-5.1); SODIUM SERUM 136 mmol/L (136-145)
[2018-08-04 06:04] LABS: RED CELL DISTRIBUTION WIDTH 17.4 % (11.5-14.5)
[2018-08-05] VITALS (17 sets, daily range): BP systolic 104–141; BP diastolic 57–76
[2018-08-05 05:08] LABS: BASOPHIL % 0.5 % (0-2); PLATELET COUNT 290 x10^3mcL (130-400)
[2018-08-05 05:15] LABS: RED CELL DISTRIBUTION WIDTH 16.9 % (11.5-14.5)
[2018-08-05 05:30] LABS: CARBON DIOXIDE 31.7 mmol/L (21-32); CHLORIDE SERUM 97 mmol/L (98-107); CREATININE SERUM 0.4 mg/dL (0.6-1.0); GFR1 > 60 mL/min; GLUCOSE SERUM 89 mg/dL (74-106); MAGNESIUM 2.3 mg/dL (1.8-2.4); PHOSPHOROUS 2.4 mg/dL (2.5-4.9); SODIUM SERUM 134 mmol/L (136-145)
[2018-08-05 05:37] LABS: POTASSIUM SERUM 2.7 mmol/L (3.5-5.1)
[2018-08-06] VITALS (17 sets, daily range): BP systolic 105–140; BP diastolic 55–79
[2018-08-06 03:36] LABS: microscopic required? NO
[2018-08-06 03:40] LABS: urine erythrocyte NEGATIVE (NEGATIVE)
[2018-08-06 05:26] LABS: BASOPHIL % 0.4 % (0-2); PLATELET COUNT 331 x10^3mcL (130-400); RED CELL DISTRIBUTION WIDTH 16.4 % (11.5-14.5)
[2018-08-06 05:36] LABS: CALCIUM 9.3 mg/dL (8.5-10.1); CHLORIDE SERUM 94 mmol/L (98-107); CREATININE SERUM 0.4 mg/dL (0.6-1.0); GFR1 > 60 mL/min; GLUCOSE SERUM 86 mg/dL (74-106); POTASSIUM SERUM 3.4 mmol/L (3.5-5.1); SODIUM SERUM 132 mmol/L (136-145)
[2018-08-07] VITALS (20 sets, daily range): BP systolic 92–139; BP diastolic 43–81
[2018-08-07 05:28] LABS: BASOPHIL % 0.9 % (0-2); PLATELET COUNT 387 x10^3mcL (130-400)
[2018-08-07 05:29] LABS: RED CELL DISTRIBUTION WIDTH 17.5 % (11.5-14.5)
[2018-08-07 05:42] LABS: CALCIUM 9.1 mg/dL (8.5-10.1); CARBON DIOXIDE 29.7 mmol/L (21-32); CHLORIDE SERUM 98 mmol/L (98-107); CREATININE SERUM 0.4 mg/dL (0.6-1.0); GFR1 > 60 mL/min; GLUCOSE SERUM 74 mg/dL (74-106); MAGNESIUM 1.9 mg/dL (1.8-2.4); POTASSIUM SERUM 4.1 mmol/L (3.5-5.1); SODIUM SERUM 134 mmol/L (136-145)
[2018-08-08] VITALS (17 sets, daily range): BP systolic 94–132; BP diastolic 53–86
[2018-08-08 05:22] LABS: BASOPHIL % 1.3 % (0-2); PLATELET COUNT 425 x10^3mcL (130-400)
[2018-08-08 05:45] LABS: CALCIUM 9.1 mg/dL (8.5-10.1); CHLORIDE SERUM 103 mmol/L (98-107); CREATININE SERUM 0.5 mg/dL (0.6-1.0); GFR1 > 60 mL/min; GLUCOSE SERUM 95 mg/dL (74-106); PHOSPHOROUS 2.8 mg/dL (2.5-4.9); POTASSIUM SERUM 3.6 mmol/L (3.5-5.1); SODIUM SERUM 140 mmol/L (136-145)
[2018-08-09] VITALS (19 sets, daily range): BP systolic 115–136; BP diastolic 65–90
[2018-08-09 05:33] LABS: BASOPHIL % 0.7 % (0-2)
[2018-08-09 05:35] LABS: PLATELET COUNT 509 x10^3mcL (130-400)
[2018-08-09 06:17] LABS: CALCIUM 8.7 mg/dL (8.5-10.1); CARBON DIOXIDE 28.5 mmol/L (21-32); CHLORIDE SERUM 108 mmol/L (98-107); CREATININE SERUM 0.4 mg/dL (0.6-1.0); GFR1 > 60 mL/min; GLUCOSE SERUM 87 mg/dL (74-106); POTASSIUM SERUM 3.4 mmol/L (3.5-5.1); SODIUM SERUM 145 mmol/L (136-145)
[2018-08-10] VITALS (17 sets, daily range): BP systolic 114–135; BP diastolic 45–95
[2018-08-10 05:37] LABS: BASOPHIL % 0.5 % (0-2)
[2018-08-10 05:41] LABS: PLATELET COUNT 522 x10^3mcL (130-400); RED CELL DISTRIBUTION WIDTH 17.7 % (11.5-14.5)
[2018-08-10 06:13] LABS: CALCIUM 9.3 mg/dL (8.5-10.1); CARBON DIOXIDE 28.1 mmol/L (21-32); CHLORIDE SERUM 116 mmol/L (98-107); CREATININE SERUM 0.5 mg/dL (0.6-1.0); GFR1 > 60 mL/min; GLUCOSE SERUM 96 mg/dL (74-106); POTASSIUM SERUM 3.3 mmol/L (3.5-5.1); SODIUM SERUM 155 mmol/L (136-145)
[2018-08-11] VITALS (18 sets, daily range): BP systolic 99–139; BP diastolic 48–81
[2018-08-11 05:39] LABS: CALCIUM 8.8 mg/dL (8.5-10.1); CARBON DIOXIDE 26.9 mmol/L (21-32); CHLORIDE SERUM 119 mmol/L (98-107); CREATININE SERUM 0.5 mg/dL (0.6-1.0); GFR1 > 60 mL/min; GLUCOSE SERUM 98 mg/dL (74-106); PHOSPHOROUS 2.4 mg/dL (2.5-4.9); POTASSIUM SERUM 3.2 mmol/L (3.5-5.1); SODIUM SERUM 155 mmol/L (136-145)
[2018-08-11 05:54] LABS: BASOPHIL % 0.6 % (0-2); PLATELET COUNT 374 x10^3mcL (130-400)
[2018-08-11 05:55] LABS: RED CELL DISTRIBUTION WIDTH 18.2 % (11.5-14.5)
[2018-08-12] VITALS (17 sets, daily range): BP systolic 92–135; BP diastolic 55–87
[2018-08-12 05:24] LABS: CALCIUM 8.1 mg/dL (8.5-10.1); CARBON DIOXIDE 26.3 mmol/L (21-32); CHLORIDE SERUM 107 mmol/L (98-107); CREATININE SERUM 0.4 mg/dL (0.6-1.0); GFR1 > 60 mL/min; GLUCOSE SERUM 98 mg/dL (74-106); POTASSIUM SERUM 3.7 mmol/L (3.5-5.1); SODIUM SERUM 142 mmol/L (136-145)
[2018-08-12 05:36] LABS: BASOPHIL % 0.8 % (0-2); PLATELET COUNT 425 x10^3mcL (130-400); RED CELL DISTRIBUTION WIDTH 17.5 % (11.5-14.5)
[2018-08-12 05:41] LABS: MAGNESIUM 1.8 mg/dL (1.8-2.4); PHOSPHOROUS 2.2 mg/dL (2.5-4.9)
[2018-08-13] VITALS (18 sets, daily range): BP systolic 94–137; BP diastolic 20–78; Ht 142.2 cm; Wt 70.9 kg
[2018-08-13 04:58] LABS: CALCIUM 8.3 mg/dL (8.5-10.1); CARBON DIOXIDE 26.3 mmol/L (21-32); CHLORIDE SERUM 100 mmol/L (98-107); CREATININE SERUM 0.4 mg/dL (0.6-1.0); GFR1 > 60 mL/min; GLUCOSE SERUM 92 mg/dL (74-106); MAGNESIUM 1.8 mg/dL (1.8-2.4); SODIUM SERUM 134 mmol/L (136-145)
[2018-08-13 05:23] LABS: BASOPHIL % 1.3 % (0-2); PLATELET COUNT 380 x10^3mcL (130-400); RED CELL DISTRIBUTION WIDTH 17.6 % (11.5-14.5)
[2018-08-13] MEDS ORDERED: BEN25I IV (14:21)
[2018-08-13] MEDS ORDERED: IPRATROPIUM BROM3 M2 HHN ×2 (14:22)
[2018-08-13] MEDS ORDERED: HEP5I SC (14:23)
[2018-08-13] MEDS ORDERED: LIPI20 PO (14:24)
[2018-08-13] MEDS ORDERED: DIL100I IV (14:25)
[2018-08-13] MEDS ORDERED: TYL325 PO (14:25)
[2018-08-13] MEDS ORDERED: ATI2I IV (14:26)
[2018-08-13] MEDS ORDERED: NPHOS NG (14:26)
[2018-08-13] MEDS ORDERED: COL100UDC PO (14:34)
[2018-08-13] MEDS ORDERED: DUL10S RC (14:34)
[2018-08-13] MEDS ORDERED: DEXPF IV (14:34)
[2018-08-13] MEDS ORDERED: ZOFI IV (14:35)
[2018-08-13] MEDS ORDERED: PROT40I IV (14:35)
[2018-08-13] MEDS ORDERED: HUMULIN R100 U/1 M1 SC (14:35)
[2018-08-13] MEDS ORDERED: LAC NG (14:35)
[2018-08-13] MEDS ORDERED: DDAVP SC (14:36)
[2018-08-13] MEDS ORDERED: NOVAPLUS LEVO100 MCG IV (14:36)
[2018-08-13] MEDS ORDERED: MEROPENEM1 GM IV (14:40)
[2018-08-13] MEDS ORDERED: FERRLECIT62.5 MG/5 IV (14:46)
[2018-08-13 15:17] LABS: CALCIUM 8.5 mg/dL (8.5-10.1); CARBON DIOXIDE 25.8 mmol/L (21-32); CHLORIDE SERUM 100 mmol/L (98-107); CREATININE SERUM 0.5 mg/dL (0.6-1.0); GFR1 > 60 mL/min; GLUCOSE SERUM 88 mg/dL (74-106); POTASSIUM SERUM 3.4 mmol/L (3.5-5.1); SODIUM SERUM 132 mmol/L (136-145)
[2018-08-14] VITALS (14 sets, daily range): BP systolic 92–122; BP diastolic 50–72
[2018-08-14 10:39] LABS: CALCIUM 9.1 mg/dL (8.5-10.1); CARBON DIOXIDE 28.4 mmol/L (21-32); CHLORIDE SERUM 100 mmol/L (98-107); CREATININE SERUM 0.4 mg/dL (0.6-1.0); GFR1 > 60 mL/min; GLUCOSE SERUM 98 mg/dL (74-106); POTASSIUM SERUM 3.7 mmol/L (3.5-5.1); SODIUM SERUM 134 mmol/L (136-145)
== END 2018-08-14 20:35 | DRG 4 ==
LOC: ED 23:01 → DU 07-26 04:45 → IC 07-26 04:45 → DU 07-26 13:37 → IC 07-30 14:49
PROVIDERS: Emergency Medicine; Family Medicine; Internal Medicine; Internal Medicine Infectious Disease; Internal Medicine Nephrology; Specialist; ADMIT Internal Medicine
PROC: 5A1955Z Respiratory Ventilation, Greater than 96 Consecutive Hours (ICD-10-PCS; principal; 2018-07-31)
PROC: 0BH17EZ Insertion of Endotracheal Airway into Trachea, Via Natural or Artificial Opening (ICD-10-PCS; 2018-07-31)
PROC: 0BH17EZ Insertion of Endotracheal Airway into Trachea, Via Natural or Artificial Opening (ICD-10-PCS; 2018-08-04)
PROC: 05HN33Z Insertion of Infusion Device into Left Internal Jugular Vein, Percutaneous Approach (ICD-10-PCS; 2018-08-06)
PROC: B544ZZA Ultrasonography of Left Jugular Veins, Guidance (ICD-10-PCS; 2018-08-06)
PROC: 0B110F4 Bypass Trachea to Cutaneous with Tracheostomy Device, Open Approach (ICD-10-PCS; 2018-08-07)
DX: J69.0 Pneumonitis due to inhalation of food and vomit (principal); J96.21 Acute and chronic respiratory failure with hypoxia; G93.41 Metabolic encephalopathy; G82.20 Paraplegia, unspecified; E23.2 Diabetes insipidus; N39.0 Urinary tract infection, site not specified; L03.116 Cellulitis of left lower limb; J15.0 Pneumonia due to Klebsiella pneumoniae; J15.212 Pneumonia due to Methicillin resistant Staphylococcus aureus; J44.9 Chronic obstructive pulmonary disease, unspecified; E78.5 Hyperlipidemia, unspecified; E03.9 Hypothyroidism, unspecified; E34.3 Short stature due to endocrine disorder; G40.909 Epilepsy, unspecified, not intractable, without status epilepticus; R13.10 Dysphagia, unspecified; R62.50 Unspecified lack of expected normal physiological development in childhood; Z68.38 Body mass index [BMI] 38.0-38.9, adult; Z86.73 Personal history of transient ischemic attack (TIA), and cerebral infarction without residual deficits; Z74.01 Bed confinement status; Z99.81 Dependence on supplemental oxygen; Z87.01 Personal history of pneumonia (recurrent)
CPT/HCPCS: 31500; 36556; 36600; 82962; 83880; 84439; 87804; 92526-GN; 92610; A4628; C9113; J0132; J0456; J0696; J1165; J1450; J1642; J1644; J1940; J1953; J1956; J2001; J2060; J2185; J2250; J2597; J2704; J2916; J3010; J3370; J3475; J3480; J3490; J7030; J7050; J7120; J7131; J7613; J7620; J7644; Q0092; Q0163